=== PATIENT | female | born 1965 | race American Indian/Alaskan Native ===

== ENCOUNTER 2021-08-11 12:44 | Emergency (ER) | payer SELFPAY ==
[2021-08-11 15:48] LABS: Basophils % (Auto) 0.4 % (0.0-1.8); Eosinophils # (Auto) 0.2 K/mm3 (0.0-0.4); Hemoglobin 13.6 gm/dl (10.1-14.3); Lymphocytes # (Auto) 1.3 K/mm3 (1.2-5.4); Lymphocytes % (Auto) 16.9 % (13.4-35.0); Mean Corpuscular HGB Conc 33 % (30-34); Mean Corpuscular Volume 81 fl (79-97); Monocytes # (Auto) 0.7 K/mm3 (0.0-0.8); Monocytes % (Auto) 8.3 % (0.0-7.3); Platelet Count 243 K/mm3 (140-440); Red Blood Count 5.04 M/mm3 (3.65-5.03); Red Cell Distribution Width 16.5 % (13.2-15.2)
--- NOTE | 2021-08-11 16:05 | Emergency Department Report ---
HPI - General Chief Complaint: Psych Time Seen by Provider: 08/11/21 15:17 - HPI HPI: Room 33 Patient is a 56-year-old female present with a chief complaint of depression. Patient states she has felt depressed for the past 2 to 3 weeks and today she malone d an episode due to this depression which caused her to bang on the table and yell a lot. Family prompted the patient come to the emergency department for further evaluation. Patient denies suicidal or homicidal ideation. Patient denies auditory visual hallucination ED Past Medical Hx - Past Medical History Hx Hypertension: Yes Hx Psychiatric Treatment: Yes (poss. bipolar) - Surgical History Additional Surgical History: foot, neck - Family History Family history: no significant - Social History Smoking Status: Never Smoker Substance Use Type: None (Denies illicit drug use), Alcohol (Occasional) - Medications Home Medications: Home Medications Medication Instructions Recorded Confirmed Last Taken Type carvediloL [Coreg] 1 tab PO QDAY 03/16/20 03/16/20 Unknown History hydrOXYzine PAMOATE [Vistaril] 50 mg PO QDAY 03/16/20 03/16/20 Unknown History lisinopriL [Zestril TAB] 40 mg PO QDAY 03/16/20 03/16/20 Unknown History Aspirin [Adult Aspirin] 81 mg PO DAILY 03/17/20 03/17/20 Unknown History Rosuvastatin Calcium [Crestor] 20 mg PO BID 03/18/20 03/18/20 Unknown History ED Review of Systems ROS: Stated complaint: HEARING VOICES Other details as noted in HPI Constitutional: no symptoms reported Eyes: denies: eye pain ENT: denies: throat pain Respiratory: no symptoms reported Cardiovascular: denies: chest pain Endocrine: no symptoms reported Gastrointestinal: denies: abdominal pain Genitourinary: denies: dysuria Musculoskeletal: denies: back pain Neurological: denies: headache Psychiatric: depression. denies: auditory hallucinations, visual hallucinations, homicidal thoughts, suicidal thoughts Physical Exam - Physical Exam Vital Signs: Vital Signs 08/11/21 08/11/21 13:00 15:12 Temperature 99.0 F Pulse Rate 99 H 78 Respiratory 16 16 Rate Blood Pressure 217/130 Blood Pressure 156/90 [Left] O2 Sat by Pulse 96 95 Oximetry Physical Exam: GENERAL: The patient is well-developed well-nourished female lying on chair not appearing to be in acute distress. [] HEENT: Normocephalic. Atraumatic. Extraocular motions are intact. Patient has moist mucous membranes. NECK: Supple. Trachea midline CHEST/LUNGS: Clear to auscultation. There is no respiratory distress noted. HEART/CARDIOVASCULAR: Regular. There is no tachycardia. There is no gallop rub or murmur. ABDOMEN: Abdomen is soft, nontender. Patient has normal bowel sounds. There is no abdominal distention. SKIN: There is no rash. There is no edema. There is no diaphoresis. NEURO: The patient is awake, alert, and oriented. The patient is cooperative. The patient has no focal neurologic deficits. The patient has normal speech. GCS 15 MUSCULOSKELETAL: There is no evidence of acute injury. ED Course Vital Signs 08/11/21 08/11/21 13:00 15:12 Temperature 99.0 F Pulse Rate 99 H 78 Respiratory 16 16 Rate Blood Pressure 217/130 Blood Pressure 156/90 [Left] O2 Sat by Pulse 96 95 Oximetry - Consultations Consultation #1: 08/11/21 17:36 MH multimedia services manager's note appreciated. Patient cleared by psych ED Medical Decision Making - Lab Data Result diagrams: 08/11/21 15:34 08/11/21 15:34 Laboratory Tests 08/11/21 08/11/21 08/11/21 15:34 15:34 15:34 WBC 7.9 RBC 5.04 H Hgb 13.6 Hct 41.0 MCV 81 MCH 27 L MCHC 33 RDW 16.5 H Plt Count 243 Lymph % (Auto) 16.9 Pitt % (Auto) 8.3 H Eos % (Auto) 2.0 Baso % (Auto) 0.4 Lymph # (Auto) 1.3 Pitt # (Auto) 0.7 Eos # (Auto) 0.2 Baso # (Auto) 0.0 Seg Neutrophils % 72.4 H Seg Neutrophils # 5.8 Sodium 143 Potassium 3.2 L Chloride 99.6 Carbon Dioxide 30 Anion Gap 17 BUN 10 Creatinine 0.7 Estimated GFR > 60 BUN/Creatinine Ratio 14 Glucose 86 Calcium 9.5 Salicylates < 0.3 L Acetaminophen 08/11/21 15:34 WBC RBC Hgb Hct MCV MCH MCHC RDW Plt Count Lymph % (Auto) Pitt % (Auto) Eos % (Auto) Baso % (Auto) Lymph # (Auto) Pitt # (Auto) Eos # (Auto) Baso # (Auto) Seg Neutrophils % Seg Neutrophils # Sodium Potassium Chloride Carbon Dioxide Anion Gap BUN Creatinine Estimated GFR BUN/Creatinine Ratio Glucose Calcium Salicylates Acetaminophen 5.0 L - Differential Diagnosis Depression Critical care attestation.: If time is entered above; I have spent that time in minutes in the direct care of this critically ill patient, excluding procedure time. ED Disposition Clinical Impression: Depression, Hypokalemia Disposition: HOME / SELF CARE / HOMELESS Is pt being admited?: No Does the pt Need Aspirin: No Condition: Stable Instructions: Hypokalemia, Living With Depression Additional Instructions: Professional and Agency Contacts To help [facility](14/03) [place] Crisis Line: Suicide Prevention Line: Crisis Text Line: Text START to 923879 Emergency: 911 Outpatient [facility] Behavioral Health Resources: JONH: Jonh Crisis [address] [address] [facility] - [address] [place] [address] Tuesday thru Tuesday - 8am - 5pm [facility] Address: [address] [place] [address] [facility] Address: [address] [place] [address] Tuesday thru Tuesday- 7am-2pm [facility] Address: [address] [place] [address] Tuesday thru Tuesday: 8:30AM-5PM In case of an emergency, please contact the following numbers: [place] Crisis and Access Line: Number: Crisis Text Line: (Text START) Number: 697649 Suicide Prevention Line: Number: Emergency Number: [address] [facility], [address] [place] [address], [place] [address] [facility] Sunny Alvarado MD: [address] [place] [address] [facility]: [address] [place] [address] [place] [address] [phone] [facility]: [address] [facility] [address] [place] [address] [facility]: [address] [facility] [address] [facility] [address] [facility]: [address] [place], [place] [address] Sherman MD: [address] [facility] [id number] [facility]: [address] [facility] [place], [place] [id number] [phone] [place] CRISIS AND ACCESS LINE: * Referrals: PRIMARY CAREMD [Primary Care Provider] - 3-5 Days Time of Disposition: 17:37
[2021-08-11 16:11] LABS: Blood Urea Nitrogen 10 mg/dL (7-17); Calcium 9.5 mg/dL (8.4-10.2); Hemolysis Index 7
[2021-08-11 16:27] LABS: BUN/Creatinine Ratio 14
[2021-08-11] MEDS ORDERED: POTASSIUM CHLORIDE ER 20 MEQ TAB PO ONE (17:35)
[2021-08-11 18:29] VITALS: BP 167/102
== END 2021-08-11 18:30 | disposition home or self-care (01) ==
LOC: ED 12:44
DX: F31.9 Bipolar disorder, unspecified (principal); I10 Essential (primary) hypertension; F32.9 Major depressive disorder, single episode, unspecified; E87.6 Hypokalemia
CPT/HCPCS: 36415; 80048; 80320; 85025; 99284; G0480